=== PATIENT | male | born 1970 | race Caucasian/White ===

== ENCOUNTER 2017-01-09 17:00 | Emergency (ER) | payer MEDICAID ==
[~2017-01-09] VITALS: Ht 180.3 cm; Wt 82.6 kg
[2017-01-09] MEDS ORDERED: SODIUM CHLORIDE 0.9% 1,000 ML IV ONE (17:23)
[2017-01-09] MEDS ORDERED: SODIUM CHLORIDE 0.9% 1,000ML IVBOLUS ONE (17:30)
[2017-01-09] MEDS ORDERED: ZIPRASIDONE 20 MG INJ IM ONE ×2 (17:30→18:04)
[2017-01-09] MEDS ORDERED: LORazepam 2 MG/ML, 1ML IVPush ONE (17:30)
[2017-01-09] MEDS ORDERED: LORazepam 2 MG/ML, 1ML ONE (18:05)
[2017-01-09 18:14] LABS: BLOOD UREA NITROGEN 10 mg/dL (7-18)
[2017-01-09 22:46] VITALS: BP 134/74
== END 2017-01-09 22:48 | disposition home or self-care (01) ==
LOC: ED 22:12
DX: F15.151 Other stimulant abuse with stimulant-induced psychotic disorder with hallucinations (principal); F10.10 Alcohol abuse, uncomplicated; R00.0 Tachycardia, unspecified; F22 Delusional disorders; Z90.49 Acquired absence of other specified parts of digestive tract
CPT/HCPCS: 36415; 80048; 82040; 85025; 93005; 96361; 96372; 96374; 99285; J2060; J3486; J7030

== ENCOUNTER 2017-10-14 09:03 | Emergency (ER) | payer MEDICAID ==
[~2017-10-14] VITALS: Ht 182.9 cm; Wt 84.2 kg
[2017-10-14 09:07] VITALS: BP 121/75
== END 2017-10-14 11:07 | disposition left against medical advice (07) ==
LOC: ED 10:00
DX: K59.00 Constipation, unspecified (principal); Z86.711 Personal history of pulmonary embolism; Z90.49 Acquired absence of other specified parts of digestive tract
CPT/HCPCS: 99282

== ENCOUNTER 2017-11-13 17:50 | Emergency (ER) | payer MEDICAID ==
[~2017-11-13] VITALS: Ht 182.9 cm; Wt 82.0 kg
[2017-11-13 17:52] VITALS: BP 137/77
[2017-11-13] MEDS ORDERED: PROPARACAINE OPHTH 0.5%, 15ML ONE (18:12)
[2017-11-13] MEDS ORDERED: FLUORESCEIN OPHTHALMIC 1 MG STRIP ONE (18:12)
[2017-11-13] MEDS ORDERED: BACITRACIN ZINC OINT 500U/GM, 0.9 GM ONE (18:47)
== END 2017-11-13 18:47 | disposition home or self-care (01) ==
LOC: ED 18:30
DX: H11.31 Conjunctival hemorrhage, right eye (principal); Z72.9 Problem related to lifestyle, unspecified; F15.10 Other stimulant abuse, uncomplicated; F17.200 Nicotine dependence, unspecified, uncomplicated
CPT/HCPCS: 99281